=== PATIENT | female | born 1955 | race Asian ===

== ENCOUNTER 2023-02-17 09:20 | Day surgery (SDC) | payer OTHER ==
[2023-02-13 12:17] VITALS: BMI 23.3
[2023-02-17 11:25] VITALS: RESP 16; TEMP 97.6
[2023-02-17 11:38] VITALS: BP 101/50; PULSE 55
== END 2023-02-17 11:50 | disposition home or self-care (01) ==
LOC: FASU-ENDO 09:20 → EDSEX 12:30
PROVIDERS: ATTEND Internal Medicine Gastroenterology
PROC: 0DJD8ZZ Inspection of Lower Intestinal Tract, Via Natural or Artificial Opening Endoscopic (ICD-10-PCS; principal; 2023-02-17 11:04)
DX: Z12.11 Encounter for screening for malignant neoplasm of colon (principal); Z86.010 Personal history of colon polyps